=== PATIENT | female | born 1945 | race Caucasian/White ===

== ENCOUNTER 2024-07-01 10:58 | Emergency (ER) | payer MEDICARE ==
[~2024-07-01] VITALS: Ht 157.5 cm; Wt 49.3 kg
[~2024-07-01 10:58] MED LIST: DOCU-28 PO
[2024-07-01 11:18] VITALS: BP 146/73; PULSE 72; RESP 15; TEMP 98.8; O2SAT 98
== END 2024-07-01 13:48 | disposition home or self-care (01) ==
LOC: ER 10:59
DX: S80.11XA Contusion of right lower leg, initial encounter (principal); I10 Essential (primary) hypertension; R60.0 Localized edema; Z88.2 Allergy status to sulfonamides; Z79.899 Other long term (current) drug therapy; X58.XXXA Exposure to other specified factors, initial encounter; Y93.89 Activity, other specified; Y92.89 Other specified places as the place of occurrence of the external cause; Y99.8 Other external cause status
CPT/HCPCS: 73590; 93971; 99284

== ENCOUNTER 2025-07-22 13:24 | Outpatient (CLI) | payer MEDICARE ==
--- NOTE | 2025-07-22 14:45 | RADIOLOGY REPORT ---
EXAM: MR MRI HEAD INDICATION: BENIGN NEOPLASM OF MENINGES, UNSPECIFIED TECHNIQUE: Multiplanar, multisequence imaging of the brain without contrast. COMPARISON: None FINDINGS: [PARENCHYMA]: No evidence of diffusion restriction. Area of abnormal T2 hyperintensity with macrolobulated appearance measuring 1.9 x 2.2 cm in the right anterior inferior frontal lobe with surrounding vasogenic edema, incompletely characterized. Consider further evaluation with postcontrast imaging [VENTRICLES]: No hydrocephalus. [EXTRA-AXIAL SPACES]: No extra-axial fluid collections. [EXTRA-CRANIAL STRUCTURES]: The bony structures are intact. Evidence of prior bilateral cataract surgery. IMPRESSION: 1. No evidence of acute infarction. 2. Area of abnormal T2 hyperintensity with macrolobulated appearance measuring 1.9 x 2.2 cm in the right anterior inferior frontal lobe with surrounding vasogenic edema, incompletely characterized. 3. Consider further evaluation with postcontrast imaging.
[2025-07-22] MEDS ORDERED: GADOTERATE MEGLUMINE 7.5 MMOL/15 ML VIAL IV ONE (21:26)
== END 2025-07-22 23:59 | disposition home or self-care (01) ==
LOC: MRI 13:24
PROVIDERS: ATTEND Neurological Surgery
DX: D32.9 Benign neoplasm of meninges, unspecified (principal)
CPT/HCPCS: 70553; A9575